=== PATIENT | female | born 2000 | race Caucasian/White ===

== ENCOUNTER 2021-09-07 04:00 | Inpatient (IN) ==
[2021-09-07] MEDS ORDERED: Ondansetron 4 MG/2 ML VIAL IVP PRN (04:25)
[2021-09-07] MEDS ORDERED: *HR* Nalbuphine 10 MG/ML AMPUL IV PRN (04:25)
[2021-09-07] MEDS ORDERED: Famotidine 20 MG/2 ML VIAL IVP PRN (04:25)
[2021-09-07] MEDS ORDERED: Naloxone 0.4 MG/ML INJ IVP PRN (04:25)
[2021-09-07] MEDS ORDERED: Metoclopramide 10 MG/2 ML VIAL IVP PRN (04:25)
[2021-09-07] MEDS ORDERED: Penicillin G Potassium 5,000,000 UNIT in 0.9 % Sodium Chloride Mini Bag 100 ML IVPB ONE (04:25)
[2021-09-07] MEDS ORDERED: Azithromycin 500 MG in 0.9 % Sodium Chloride 250 ML IVPB PRN (04:25)
[2021-09-07] MEDS ORDERED: miSOPROStoL 25 MCG TABLET PO PRN (04:25)
[2021-09-07] MEDS ORDERED: Oxytocin 30 UNIT/503 ML BAG IVC SCH (04:30)
[2021-09-07] MEDS ORDERED: Ringers Solution, Lactated 1,000 ML IVC SCH (04:30)
[2021-09-07 05:24] LABS: Basophils % 0.2 %; Eosinophils # 0.1 K/mcL (0.0-0.6); Eosinophils % 0.6 %; Hemoglobin 11.8 g/dL (11.5-15.4); Immature Granulocytes % 0.5 % (0-4); Lymphocytes # 2.1 K/mcL (0.6-4.6); Lymphocytes % 15.8 %; Mean Corpuscular HGB Conc 31.9 g/dL (31.6-35.5); Mean Corpuscular Hemoglobin 26.5 pg (28.0-33.3); Mean Platelet Volume 10.8 fL (9.4-12.4); Monocytes # 0.7 K/mcL (0.0-1.3); Monocytes % 5.2 %; Neutrophils # 10.1 K/mcL (1.6-8.9); Platelet Count 341 K/mcL (140-400); Red Blood Count 4.46 M/mcL (3.82-4.97); Segmented Neutrophils % 77.7 %; White Blood Count 13.1 K/mcL (4.3-11.1)
[2021-09-07 05:30] LABS: Amphetamine Screen,Urine Negative ng/mL (Cutoff=1000); Barbiturate Screen,Urine Negative ng/mL (Cutoff=200); Benzodiazepines Screen,Urine Negative ng/mL (Cutoff=200); Cannabinoid Screen,Urine Negative ng/mL (Cutoff = 50); Cocaine Screen,Urine Negative ng/mL (Cutoff= 300); Opiate Screen,Urine Negative ng/mL (Cutoff=300); Phencyclidine Screen,Urine Negative ng/mL (Cutoff=25)
[2021-09-07 05:57] LABS: Influenza A PCR Negative (Negative); Influenza B PCR Negative (Negative); Resp. Syncytial Virus PCR Negative (Negative)
[2021-09-07 06:02] LABS: SARS-CoV-2 by PCR (In House) Negative (Negative)
[2021-09-07] MEDS ORDERED: EPHEDrine 50 MG/ML VIAL IVP PRN (07:03)
[2021-09-07] MEDS: Penicillin G Potassium 2,500,000 UNIT/105 ML MLS IVPB SCH ×3 (09:47→18:29)
[2021-09-07] MEDS ORDERED: Bupivacaine-MPF 0.25% 10 ML VIAL ONE (13:14)
[2021-09-07] MEDS ORDERED: *HR* FentaNYL (PF) 100 MCG/2 ML VIAL ONE (13:14)
[2021-09-07] MEDS: Epidural Premix (fent/bupiv) 110 ML EP SCH ×2 (14:15→20:45)
[2021-09-08] MEDS ORDERED: Ondansetron ODT 4 MG TAB.RAPDIS SL PRN (00:21)
[2021-09-08] MEDS ORDERED: Measles/Mumps/Rubella Vacc 0.5 ML VIAL SQ PRN (00:21)
[2021-09-08] MEDS ORDERED: Benzocaine/Menthol 56 GM AEROSOL SPRAY TP PRN (00:21)
[2021-09-08] MEDS ORDERED: Rho Immune Globulin 1,500 UNIT SYRINGE IM PRN (00:21)
[2021-09-08] MEDS ORDERED: Oxytocin 30 UNIT/503 ML BAG IVC SCH (00:21)
[2021-09-08] MEDS ORDERED: Lanolin 7 G OINT...G. TP PRN (00:21)
[2021-09-08] MEDS: Ibuprofen 600 MG TABLET PO SCH ×3 (02:41→20:25)
[2021-09-08] MEDS: Acetaminophen 325 MG TABLET PO SCH ×3 (02:41→20:25)
[2021-09-08 02:50] VITALS: O2SAT 98
[2021-09-08 04:37] LABS: Basophils % 0.2 %; Eosinophils % 0.1 %; Hemoglobin 11.3 g/dL (11.5-15.4); Immature Granulocytes % 0.4 % (0-4); Lymphocytes # 1.6 K/mcL (0.6-4.6); Lymphocytes % 8.7 %; Mean Corpuscular HGB Conc 32.3 g/dL (31.6-35.5); Mean Corpuscular Hemoglobin 26.7 pg (28.0-33.3); Mean Corpuscular Volume 82.5 fL (83.0-100.0); Monocytes % 5.3 %; Neutrophils # 15.4 K/mcL (1.6-8.9); Platelet Count 325 K/mcL (140-400); Red Blood Count 4.24 M/mcL (3.82-4.97); Red Cell Distribution Width 19.7 % (11.5-14.5); Segmented Neutrophils % 85.3 %; White Blood Count 18.1 K/mcL (4.3-11.1)
[2021-09-08 07:42] VITALS: BP 97/50; PULSE 56; TEMP 97.9
[2021-09-08] MEDS ORDERED: Prenatal Vit/FA 1 EACH TABLET PO SCH (09:00)
== END 2021-09-08 23:00 | disposition home or self-care (01) | DRG 560 ==
LOC: 1NENULAB 04:15 → 1NENUOBS 09-08 00:21
PROVIDERS: ADMIT Obstetrics & Gynecology; ATTEND Obstetrics & Gynecology